=== PATIENT | female | born 2000 | race Caucasian/White ===

== ENCOUNTER 2024-08-07 07:42 | Inpatient (IN) | payer BC ==
[2024-08-15 16:17] VITALS: BMI 27.6
[2024-08-15] MEDS ORDERED: hydrALAZINE 20 MG/ML VIAL SLOW IVP PRN ×2 (16:54→16:55)
[2024-08-15] MEDS ORDERED: Lidocaine 1% (PF) 30 ML VIAL SC PRN ×2 (16:54→16:55)
[2024-08-15] MEDS ORDERED: Promethazine HCl 25 MG/ML VIAL IM PRN ×2 (16:54→16:55)
[2024-08-15] MEDS ORDERED: Ondansetron PF 4 MG/2 ML Vial IVP PRN (16:54)
[2024-08-15] MEDS ORDERED: Carboprost 250 MCG/ML AMP IM PRN (16:55)
[2024-08-15] MEDS ORDERED: HYDROcodone/Acetaminophen 5/325 mg Tablet PO PRN (16:55)
[2024-08-15] MEDS ORDERED: fentaNYL 50 mcg/mL 1 mL Vial SLOW IVP PRN (16:55)
[2024-08-15] MEDS ORDERED: Zolpidem Tartrate 5 MG TAB PO PRN (16:55)
[2024-08-15] MEDS ORDERED: Acetaminophen 500 MG TAB PO PRN (16:55)
[2024-08-15] MEDS ORDERED: Methylergonovine 0.2 MG/ML VIAL IM PRN (16:55)
[2024-08-15] MEDS ORDERED: Ibuprofen 800 MG TAB PO PRN (16:55)
[2024-08-15] MEDS ORDERED: Misoprostol 200 MCG TAB PR PRN (16:55)
[2024-08-15] MEDS ORDERED: Diphenoxylate HCl/Atropine Tablet PO PRN (16:55)
[2024-08-15] MEDS ORDERED: Oxytocin 30 units/NS 500 ML 500 ML IV SCH ×3 (17:00)
[2024-08-15] MEDS ORDERED: Lactated Ringer's 1,000 ML IV SCH (17:00)
[2024-08-15] MEDS: Misoprostol 100 MCG TAB VAG SCH (17:17)
[2024-08-15 17:25] LABS: Hematocrit 36.6 % (34.9-44.5); Hemoglobin 12.2 g/dL (12.0-15.5); Mean Corpuscular HGB CONC 33.3 g/dL (32.0-36.0); Mean Corpuscular Hemoglobin 29.9 pg (27.0-33.0); Mean Corpuscular Volume 89.7 fL (81.6-98.3); Mean Platelet Volume 10.8 fL (7.4-10.4); Platelet Count 193 10x3/uL (150-450); RBC Distribution Width 12.8 % (11.5-14.5); Red Blood Cell (RBC) Count 4.08 10x6/uL (3.90-5.03); White Blood Cell (WBC) Count 8.1 10x3/uL (3.5-10.5)
[2024-08-15 19:27] LABS: Syphilis Antibody Nonreactive (Nonreactive); Syphilis Antibody Index 0.04 S/CO (<1.00 Non-Reactive)
[2024-08-15 19:28] LABS: HBsAg Index 0.21 S/CO (0-0.99); Hep B Surf Ag - L&D Non-Reactive S/CO (NonReactive)
[2024-08-16] MEDS ORDERED: Ondansetron PF 4 MG/2 ML Vial IVP PRN ×2 (01:30→20:14)
[2024-08-16] MEDS ORDERED: ePHEDrine Sulfate 50 MG/10 ML VIAL SLOW IVP PRN (01:30)
[2024-08-16] MEDS ORDERED: Naloxone HCl 0.4 mg/ml Vial IVP PRN ×2 (01:30)
[2024-08-16] MEDS ORDERED: Promethazine HCl 25 MG/ML VIAL IM PRN ×2 (01:30→20:14)
[2024-08-16] MEDS ORDERED: Moisturizing Cream (Eucerin) 113 GM JAR TOP PRN (01:30)
[2024-08-16] MEDS ORDERED: Communication Order-Pharmacy FS SCH (01:30)
[2024-08-16] MEDS ORDERED: Lactated Ringer's 500 ML IV PRN (01:30)
[2024-08-16] MEDS ORDERED: diphenhydrAMINE 50 MG/ML VIAL IVP PRN (01:30)
[2024-08-16] MEDS: Ondansetron PF 4 MG/2 ML Vial IVP PRN (10:08)
[2024-08-16] MEDS: fentaNYL 2 mcg/Ropivacaine 0.2% Epidural 100 ML CADD EPIDURAL SCH (11:37)
[2024-08-16] MEDS: Acetaminophen 325 MG TAB PO PRN (19:52)
[2024-08-16] MEDS ORDERED: diphenhydrAMINE 25 MG CAP PO PRN (20:14)
[2024-08-16] MEDS ORDERED: Lanolin Ointment 7 GM TUBE TOP PRN (20:14)
[2024-08-16] MEDS ORDERED: Bisacodyl 10 MG SUPP PR PRN (20:14)
[2024-08-16] MEDS ORDERED: HYDROcodone/Acetaminophen 5/325 mg Tablet PO PRN (20:14)
[2024-08-16] MEDS ORDERED: Preparation H Ointment 28 GM TUBE PR PRN (20:14)
[2024-08-16] MEDS ORDERED: hydrALAZINE 20 MG/ML VIAL SLOW IVP PRN (20:14)
[2024-08-16] MEDS ORDERED: Milk Of Magnesia 30 ML UDCUP PO PRN (20:14)
[2024-08-16] MEDS: fentaNYL/Ropivacaine Epidural 100 ML ONE (20:32)
[2024-08-16] MEDS: Ibuprofen 800 MG TAB PO SCH (21:08)
[2024-08-16] MEDS: Benzocaine-Menthol 82.5 ML CAN TOP PRN (21:08)
[2024-08-16] MEDS: Docusate 100 MG CAP PO SCH (21:09)
[2024-08-16] MEDS: Boostrix 0.5 ML (Tdap) VIAL (>/=7 yrs of age) IM ONE (21:44)
[2024-08-16] MEDS: HYDROcodone/Acetaminophen 5/325 mg Tablet PO PRN (23:30)
[2024-08-17] MEDS: Ferrous Sulfate 325 MG TAB PO SCH (07:29)
[2024-08-17] MEDS: Prenatal Vitamin 1 TAB PO SCH (08:51)
[2024-08-18 08:06] VITALS: BP 119/78; TEMP 98.2
== END 2024-08-18 14:10 | disposition home or self-care (01) | DRG 807 ==
LOC: UNDOADMIN 08-15 13:51 → CSHLD 08-15 13:51 → CSHPP 08-16 20:05
PROVIDERS: ADMIT Student in an Organized Health Care Education/Training Program; ATTEND Student in an Organized Health Care Education/Training Program
PROC: 10E0XZZ Delivery of Products of Conception, External Approach (ICD-10-PCS; principal; 2024-08-16)
PROC: 0HQ9XZZ Repair Perineum Skin, External Approach (ICD-10-PCS; 2024-08-16)
DX: O41.03X0 Oligohydramnios, third trimester, not applicable or unspecified (principal); Z37.0 Single live birth; Z3A.41 41 weeks gestation of pregnancy; O48.0 Post-term pregnancy; O70.0 First degree perineal laceration during delivery
CPT/HCPCS: 36415; 51702; 85027; 86780; 86850; 86900; 86901; 87340; J2405